=== PATIENT | female | born 1955 | race Caucasian/White ===

== ENCOUNTER 2021-10-02 10:46 | Outpatient (CLI) | payer OTHER | END 2021-10-02 11:10 | disposition home or self-care (01) | LOC: SONOGRAMA 10:46 | DX: M25.512 Pain in left shoulder (principal) ==

== ENCOUNTER 2021-11-01 09:11 | Outpatient (CLI) | payer OTHER | END 2021-11-01 09:20 | disposition home or self-care (01) | LOC: MRI 09:11 | PROVIDERS: ATTEND Orthopaedic Surgery | DX: M54.2 Cervicalgia (principal); M25.512 Pain in left shoulder | CPT/HCPCS: 72141; 73221 ==